=== PATIENT | female | born 1990 | race Caucasian/White ===

== ENCOUNTER 2021-01-11 20:04 | Emergency (ER) | payer OTHER ==
[2021-01-11 20:48] LABS: EOSINOPHIL 0.7 % (0-5); HCT 38.4 % (37.0-47.0); HGB 12.9 g/dl (12.5-16.0); LYMPHOCYTE 28.2 % (15-48); MCH 31.9 pg (25.0-31.0); MCHC 33.6 g/dL (32.0-36.0); MONOCYTE 10.9 % (0-12); NEUTROPHIL 59.1 % (41-80); NRBC 0; PLT 264 K/uL (150-400); RBC 4.04 M/uL (4.20-5.40); RDW 12.4 % (11.5-14.0); WBC 7.1 K/uL (4.0-10.5)
[2021-01-11 21:22] LABS: BUN/CREAT RATIO (CALC) 18.2 RATIO; CREATININE 0.66 mg/dL (0.51-0.95); POTASSIUM 3.5 mmol/L (3.5-5.1)
== END 2021-01-11 21:50 | disposition home or self-care (01) ==
LOC: FER 20:04
PROVIDERS: Emergency Medicine
DX: R06.4 Hyperventilation (principal); F17.200 Nicotine dependence, unspecified, uncomplicated
CPT/HCPCS: 36415; 80048; 85025; 99283

== ENCOUNTER 2021-10-31 19:22 | Inpatient (IN) | payer OTHER ==
[2021-10-31 20:32] LABS: BILIRUBIN NEGATIVE (NEGATIVE); BLOOD TRACE-INTACT Ery/uL (NEGATIVE); CLARITY CLEAR (CLEAR); COLOR YELLOW (YELLOW); GLUCOSE (U) NORMAL (NORMAL); HCT 35.6 % (37.0-47.0); HGB 12.3 g/dl (12.5-16.0); LEUKOCYTES NEGATIVE Leu/uL (NEGATIVE); MCH 31.8 pg (25.0-31.0); MCHC 34.6 g/dL (32.0-36.0); NITRITE NEGATIVE (NEGATIVE); PROTEIN NEGATIVE (NEGATIVE); RBC 3.87 M/uL (4.20-5.40); RDW 12.9 % (11.5-14.0); SPECIFIC GRAVITY >=1.030 (1.001-1.030); UROBILINOGEN 0.2 mg/dL (0.2-1.0); WBC 10.4 K/uL (4.0-10.5)
[2021-10-31 20:39] LABS: BACTERIA 1+; URINARY RBC RARE; URINARY WBC RARE
[2021-11-02 06:33] LABS: HCT 32.2 % (37.0-47.0); MCH 31.6 pg (25.0-31.0); MCHC 34.2 g/dL (32.0-36.0); MCV 92.5 fL (78.0-100.0); MPV 9.4 fL (6.0-9.5); RBC 3.48 M/uL (4.20-5.40); RDW 13.1 % (11.5-14.0); WBC 11.6 K/uL (4.0-10.5)
== END 2021-11-03 10:38 | disposition home or self-care (01) | DRG 807 ==
LOC: FOB 19:22 → FOD 19:22 → FOB 19:29 → FOD 19:37 → FOB 19:38
PROVIDERS: Obstetrics & Gynecology; ADMIT Obstetrics & Gynecology
PROC: 10E0XZZ Delivery of Products of Conception, External Approach (ICD-10-PCS; principal; 2021-11-01)
PROC: 0KQM0ZZ Repair Perineum Muscle, Open Approach (ICD-10-PCS; 2021-11-01)
DX: O99.214 Obesity complicating childbirth (principal); Z37.0 Single live birth; Z3A.39 39 weeks gestation of pregnancy; Z20.822 Contact with and (suspected) exposure to COVID-19; O70.1 Second degree perineal laceration during delivery; O71.82 Other specified trauma to perineum and vulva; Z67.31 Type AB blood, Rh negative
CPT/HCPCS: 36415; 81001; 86850; 86900; 86901; 90707; J0595; J2300; J2405; J2540; J7120; U0002